=== PATIENT | male | born 1995 | race American Indian/Alaskan Native ===

== ENCOUNTER 2017-04-03 21:57 | Emergency (ER) | payer OTHER ==
[2017-04-03 22:17] VITALS: BP 160/88
== END 2017-04-04 05:10 | disposition left against medical advice (07) ==
LOC: ED 21:57
DX: M54.2 Cervicalgia (principal); M25.511 Pain in right shoulder; V89.2XXA Person injured in unspecified motor-vehicle accident, traffic, initial encounter; Y93.89 Activity, other specified; Y99.8 Other external cause status; Y92.488 Other paved roadways as the place of occurrence of the external cause; Z53.21 Procedure and treatment not carried out due to patient leaving prior to being seen by health care provider

== ENCOUNTER 2021-10-01 11:49 | Emergency (ER) | payer SELFPAY ==
[2021-10-01 12:27] VITALS: BP 141/80
== END 2021-10-01 14:27 | disposition left against medical advice (07) ==
LOC: ED 11:49
DX: J02.9 Acute pharyngitis, unspecified (principal); Z53.21 Procedure and treatment not carried out due to patient leaving prior to being seen by health care provider

== ENCOUNTER 2021-12-02 15:04 | Emergency (ER) | payer SELFPAY | END 2021-12-03 07:50 | disposition left against medical advice (07) | LOC: ED 15:04 | DX: K92.0 Hematemesis (principal); Z53.21 Procedure and treatment not carried out due to patient leaving prior to being seen by health care provider ==

== ENCOUNTER 2021-12-26 11:57 | Emergency (ER) | payer SELFPAY ==
[2021-12-26] MEDS ORDERED: SODIUM CHLORIDE 0.9% 1000 ML 1,000 ML IV ONE (12:14)
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
[2021-12-26] MEDS ORDERED: MORPHINE 4 MG/1 ML INJ IV ONE (13:20)
[2021-12-26] MEDS ORDERED: ONDANSETRON 4 MG/2 ML INJ IV ONE (13:20)
[2021-12-26] MEDS ORDERED: FAMOTIDINE 20 MG/2 ML INJ IV ONE (13:36)
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
[2021-12-26 13:52] LABS: Basophils # (Auto) 0.1 K/mm3 (0.0-0.1); Basophils % (Auto) 0.5 % (0.0-1.8); Eosinophils % (Auto) 0.1 % (0.0-4.3); Hematocrit 42.6 % (35.5-45.6); Hemoglobin 13.5 gm/dl (11.8-15.2); Lymphocytes # (Auto) 1.3 K/mm3 (1.2-5.4); Lymphocytes % (Auto) 11.2 % (13.4-35.0); Mean Corpuscular HGB Conc 32 % (32-34); Mean Corpuscular Volume 81 fl (84-94); Monocytes # (Auto) 0.2 K/mm3 (0.0-0.8); Monocytes % (Auto) 1.8 % (0.0-7.3); Platelet Count 338 K/mm3 (140-440); Red Blood Count 5.26 M/mm3 (3.65-5.03); Red Cell Distribution Width 14.4 % (13.2-15.2)
[2021-12-26 14:03] LABS: Alanine Aminotransferase 35 units/L (7-56); Albumin 4.3 g/dL (3.9-5); BUN/Creatinine Ratio 8; Blood Urea Nitrogen 6 mg/dL (9-20); Calcium 9.9 mg/dL (8.4-10.2); Hemolysis Index 6
[2021-12-26 14:20] LABS: Bilirubin,Direct < 0.2 mg/dL (0-0.2)
[2021-12-26 16:03] LABS: Bilirubin,Urine NEG (Negative); Blood,Urine NEG (Negative); Color,Urine Yellow (Yellow); Mucus,Urine FEW /HPF; Protein,Urine <15 mg/dL mg/dL (Negative); Urobilinogen,Urine < 2.0 mg/dL (<2.0)
[2021-12-26 16:06] LABS: Amphetamine Screen,Urine Negative; Benzodiazepines Screen,Urine Negative; Cocaine Screen,Urine Negative; Methadone Screen,Urine Negative; Opiate Screen,Urine Negative
[2021-12-26 16:46] LABS: Cannabinoid Screen,Urine Positive
--- NOTE | 2021-12-26 16:57 | Cat Scan Report ---
CT abdomen pelvis w con INDICATION / CLINICAL INFORMATION: abd pain, n,v. TECHNIQUE: Axial CT images were obtained through the abdomen and pelvis after 100 cc of Omnipaque [address] scans at this location are performed using CT dose reduction for ALARA by means of automated exposure control. COMPARISON: None available. FINDINGS: LOWER CHEST: No significant abnormality LIVER: No significant abnormality GALLBLADDER/BILIARY TREE: No significant abnormality PANCREAS: No significant abnormality SPLEEN: No significant abnormality ADRENALS: No significant abnormality RIGHT KIDNEY / URETER: No significant abnormality LEFT KIDNEY / URETER: No significant abnormality URINARY BLADDER: No significant abnormality REPRODUCTIVE ORGANS: No significant abnormality STOMACH / BOWEL: Small bowel is normal in caliber. Colon is largely decompressed without abnormal wal l thickening or pericolonic inflammatory stranding. The appendix is normal in caliber. LYMPH NODES: No significant adenopathy. VASCULATURE: No significant abnormality. OTHER: No free air, free fluid, or focal fluid collection is identified. SKELETAL SYSTEM: No acute osseous findings. IMPRESSION: No acute abnormality of the abdomen or pelvis. No evidence of localized bowel inflammation or obstruc tion. Signer Name: Lonnie South MD Signed: 12/26/2021 4:53 PM Workstation Name: [id number]
[2021-12-26 17:44] VITALS: BP 163/99
--- NOTE | 2021-12-27 20:24 | Electrocardiograph Report ---
[facility] Test Date: 2021-12-26 Test Time: 13:26:32 Pat Name: MICAELA GORDON Department: Room: Gender: M Manager Medicare: HELENE : 1995 Requested By: HAMILTON DAMICO Order Number: [id number] Reading MD: Ronald Lyles Measurements Intervals [place] Rate: 64 P: 48 TN: 153 QRS: 35 QRSD: 83 T: 25 QT: 424 QTc: 427 Interpretive Statements Marked sinus arrhythmia Early repolarization ST segment changes No previous ECG available for comparison Electronically Signed On 12-27-2021 20:23:49 EDT by Ronald Lyles
== END 2021-12-26 18:33 | disposition still patient (30) ==
LOC: ED 11:57
DX: R10.84 Generalized abdominal pain (principal); R11.2 Nausea with vomiting, unspecified; I10 Essential (primary) hypertension; F19.90 Other psychoactive substance use, unspecified, uncomplicated; F17.200 Nicotine dependence, unspecified, uncomplicated; Z79.899 Other long term (current) drug therapy
CPT/HCPCS: 36415; 74177; 80048; 80076; 80307; 81001; 82140; 82550; 83690; 84484; 85025; 87040; 87086; 93005; 96361; 96374; 96375; 99284; J2270; J2405; J3490; J7030; Q9967; Q0162

== ENCOUNTER 2022-05-06 09:43 | Emergency (ER) | payer SELFPAY ==
--- NOTE | 2022-05-06 09:47 | Emergency Department Report ---
Blank Doc - Documentation Documentation: 27-year-old male that presents with abdominal pain with nausea vomiting. 1- This is a initial triage assessment/medical screening only. Full assessment and work-up will be completed once the patient is in proper hospital gown, ED bed and in a private room setting. This initial assessment/diagnostic orders/clinical plan/ treatment(s) is/are subject to change based on pt's health status, clinical progression and re-assessment by fellow clinical providers in the ED. Further treatment and workup at subsequent clinical providers discretion. Patient/guardians urged not to elope from ED as their condition may be serious if not clinically assessed and managed. 2-labs 3-UA The patient was evaluated in the emergency department for symptoms described in the history of present illness. He/she was evaluated in the context of the global COVID-19 pandemic, which necessitated consideration that the patient might be at risk for infection with the virus that causes COVID-19. Institutional protocols and algorithms that pertain to the evaluation of patients at risk for COVID-19 are in a state of rapid change based on information released by regulatory bodies including the CDC and federal and state organizations. These policies and algorithms were followed during the [facility] ient's care in the emergency department. Please note that these policies, procedures and recommendations changed on a rapid basis.
[2022-05-06] MEDS ORDERED: SODIUM CHLORIDE 0.9% 1000 ML 1,000 ML IV ONE (10:12)
[2022-05-06 10:13] LABS: Basophils # (Auto) 0.1 K/mm3 (0.0-0.1); Basophils % (Auto) 0.6 % (0.0-1.8); Eosinophils % (Auto) 0.4 % (0.0-4.3); Hematocrit 46.1 % (35.5-45.6); Hemoglobin 14.8 gm/dl (11.8-15.2); Lymphocytes # (Auto) 2.7 K/mm3 (1.2-5.4); Lymphocytes % (Auto) 26.6 % (13.4-35.0); Mean Corpuscular HGB Conc 32 % (32-34); Mean Corpuscular Volume 83 fl (84-94); Monocytes # (Auto) 0.7 K/mm3 (0.0-0.8); Monocytes % (Auto) 6.4 % (0.0-7.3); Platelet Count 253 K/mm3 (140-440); Red Blood Count 5.59 M/mm3 (3.65-5.03); Red Cell Distribution Width 13.9 % (13.2-15.2)
[2022-05-06] MEDS ORDERED: ONDANSETRON 4 MG/2 ML INJ IV ONE (10:13)
[2022-05-06] MEDS ORDERED: DICYCLOMINE 20 MG/2 ML INJ IM ONE (10:13)
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
[2022-05-06 10:29] LABS: Alanine Aminotransferase 22 units/L (7-56); Albumin 5.5 g/dL (3.9-5); BUN/Creatinine Ratio 8; Blood Urea Nitrogen 8 mg/dL (9-20); Calcium 10.9 mg/dL (8.4-10.2); Hemolysis Index 9
[2022-05-06 10:34] VITALS: BP 170/98
[2022-05-06] MEDS ORDERED: diphenhydrAMINE 50 MG/ML VIAL IV ONE (10:59)
[2022-05-06] MEDS ORDERED: KETOROLAC 30 MG/1 ML INJ IV ONE (10:59)
[2022-05-06] MEDS ORDERED: METOCLOPRAMIDE 10 MG/2 ML INJ IV ONE (10:59)
== END 2022-05-07 10:42 | disposition left against medical advice (07) ==
LOC: ED 09:43
DX: K52.9 Noninfective gastroenteritis and colitis, unspecified (principal); F12.90 Cannabis use, unspecified, uncomplicated
CPT/HCPCS: 36415; 80053; 83690; 85025; 96361; 96372; 96374; 99283; J0500; J2405; J7030; J1200; J1885; J2765

== ENCOUNTER 2022-05-08 08:28 | Emergency (ER) | payer SELFPAY ==
[2022-05-08 08:48] VITALS: BP 162/98
[2022-05-08] MEDS ORDERED: DICYCLOMINE 20 MG/2 ML INJ IM ONE (09:04)
[2022-05-08] MEDS ORDERED: SODIUM CHLORIDE 0.9% 1000 ML 1,000 ML IV ONE (09:04)
[2022-05-08] MEDS ORDERED: ONDANSETRON 4 MG/2 ML INJ IV ONE (09:04)
[2022-05-08] MEDS ORDERED: KETOROLAC 30 MG/1 ML INJ IV ONE (09:17)
[2022-05-08 09:54] LABS: Basophils % (Auto) 0.4 % (0.0-1.8); Hematocrit 47.1 % (35.5-45.6); Hemoglobin 15.6 gm/dl (11.8-15.2); Lymphocytes # (Auto) 1.9 K/mm3 (1.2-5.4); Lymphocytes % (Auto) 20.3 % (13.4-35.0); Mean Corpuscular HGB Conc 33 % (32-34); Mean Corpuscular Volume 81 fl (84-94); Monocytes # (Auto) 0.7 K/mm3 (0.0-0.8); Monocytes % (Auto) 7.5 % (0.0-7.3); Platelet Count 251 K/mm3 (140-440); Red Blood Count 5.81 M/mm3 (3.65-5.03)
--- NOTE | 2022-05-08 10:11 | XRay Report ---
CHEST 1 VIEW 05/08/2022 9:49 AM INDICATION / CLINICAL INFORMATION: Abdominal Pain. COMPARISON: None available. FINDINGS: SUPPORT DEVICES: None. HEART / MEDIASTINUM: No significant abnormality. LUNGS / PLEURA: No significant pulmonary or pleural abnormality. No pneumothorax. ADDITIONAL FINDINGS: No significant additional findings. IMPRESSION: No acute abnormality. Signer Name: Jonathan Altamirano MD Signed: 05/08/2022 10:06 AM Workstation Name: [email or web address]
[2022-05-08 10:18] LABS: Alanine Aminotransferase 47 units/L (7-56); Albumin 5.6 g/dL (3.9-5); BUN/Creatinine Ratio 11; Blood Urea Nitrogen 12 mg/dL (9-20); Calcium 10.6 mg/dL (8.4-10.2); Hemolysis Index 6
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
== END 2022-05-08 11:03 | disposition home or self-care (01) ==
LOC: ED 08:28
DX: K52.9 Noninfective gastroenteritis and colitis, unspecified (principal); F12.90 Cannabis use, unspecified, uncomplicated
CPT/HCPCS: 36415; 71045; 80053; 82010; 82150; 83690; 85025; 96361; 96372; 96374; 96375; 99284; J0500; J1885